=== PATIENT | male | born 1950 | race Caucasian/White ===

== ENCOUNTER 2017-01-15 05:26 | Day surgery (SDC) | payer OTHER ==
[~2017-01-15] VITALS: Ht 182.9 cm; Wt 88.5 kg
[~2017-01-15 05:26] MED LIST: ACID REDUCER 1150 MG PO; ALTACE5 MG PO; ATORVASTATIN CA10 MG PO; BABY ASPIRIN81 M1 PO; EPIPEN ADU0.3 MG/0.3 IM
[2017-01-15 06:44] VITALS: BP 127/77
[2017-01-15] MEDS ORDERED: NORCO 5/3251 TABLET PO (09:36)
[2017-01-15 10:46] VITALS: BP 174/84
[2017-01-15 11:57] VITALS: BP 112/68
[2017-01-15 14:00] VITALS: BP 142/72
[2017-01-15 17:29] VITALS: BP 178/84
== END 2017-01-15 17:35 | disposition home or self-care (01) ==
LOC: SDC 05:26
PROC: 0FT44ZZ Resection of Gallbladder, Percutaneous Endoscopic Approach (ICD-10-PCS; principal; 2017-01-15)
DX: K80.00 Calculus of gallbladder with acute cholecystitis without obstruction (principal); E78.00 Pure hypercholesterolemia, unspecified; I10 Essential (primary) hypertension; K21.9 Gastro-esophageal reflux disease without esophagitis; E66.3 Overweight; Z68.27 Body mass index [BMI] 27.0-27.9, adult; Z88.0 Allergy status to penicillin
CPT/HCPCS: 88304; C1769; J0131; J0330; J1100; J1170; J2405; J2710; J3010

== ENCOUNTER 2017-01-16 08:56 | Emergency (ER) | payer OTHER ==
[~2017-01-16] VITALS: Ht 182.9 cm; Wt 94.1 kg
[~2017-01-16 08:56] MED LIST changes: +NORCO 5/3251 TABLET PO
[2017-01-16 11:22] LABS: ADD MIUA? YES; BILIRUBIN NEGATIVE; BLOOD SMALL; COLOR COLORLESS ((YELLOW)); GLUCOSE (STRIP) NEGATIVE; KETONES NEGATIVE; LEUKOCYTES NEGATIVE; NITRITE NEGATIVE; PROTEIN (STRIP) NEGATIVE; SPECIFIC GRAVITY 1.002 (1.000-1.030); UROBILINOGEN 0.2 MG/DL (0.2-1.0)
[2017-01-16 11:26] LABS: BACTERIA RARE /HPF; EPITHELIAL CELLS NONE SEEN /HPF; MUCUS NONE SEEN /LPF; RED BLOOD CELLS 0-5 /HPF (0-5); UCUL ADDED? NO; WHITE BLOOD CELLS 0-5 /HPF (0-5)
[2017-01-16 11:53] VITALS: BP 143/77
== END 2017-01-16 11:59 | disposition home or self-care (01) ==
LOC: EME 08:56
PROVIDERS: Emergency Medicine
DX: R33.9 Retention of urine, unspecified (principal); Z90.49 Acquired absence of other specified parts of digestive tract; E78.5 Hyperlipidemia, unspecified; I10 Essential (primary) hypertension; Z88.0 Allergy status to penicillin
CPT/HCPCS: 81003; 99281; 99284